=== PATIENT | female | born 1950 | race Caucasian/White ===

== ENCOUNTER → 2022-11-23 15:28 | Outpatient (CLI) | payer MEDICARE, OTHER, SELFPAY | PROVIDERS: Visit Provider Student in an Organized Health Care Education/Training Program | DX: R30.0 Dysuria (principal) | CPT/HCPCS: 87077; 87086; 87186 ==

== ENCOUNTER → 2024-09-28 12:35 | Outpatient (CLI) | payer MEDICARE, SELFPAY ==
[2024-09-28 13:30] LABS: Add Manual Diff / Slide Review NO; Basophils Absolute Auto 0 /uL (0-100); Basophils Percent Auto 0.6 % (0-2); Eosinophils Absolute Auto 100 /uL (0-450); Eosinophils Percent Auto 1.2 % (2-4); Hematocrit 36.7 % (36-46); Hemoglobin 12.2 g/dL (12.0-16.0); Lymphocytes Absolute Auto 1600 /uL (1100-4500); Lymphocytes Percent Auto 29.8 % (25-40); Mean Corpuscular HGB Conc 33.4 % (30-36); Mean Corpuscular Hemoglobin 31.9 PG (26-34); Mean Corpuscular Volume 95.5 fL (80-100); Monocytes Absolute Auto 500 /uL (0-900); Monocytes Percent Auto 9.3 % (3-14); Neutrophils Absolute Auto 3200 /uL (1500-7000); Neutrophils Percent Auto 59.1 % (50-75); Platelet Count 262 X10^3/uL (150-400); Red Blood Cell Count 3.84 X10^6/uL (4.0-5.2); Red Cell Distribution Width 13.9 % (11.6-14.8); White Blood Cell Count 5.4 X10^3/uL (4.5-11.0)
[2024-09-28 13:47] LABS: Alanine Aminotransferase 14 IU/L (<35); Albumin 4.1 g/dL (3.5-5.0); Albumin Globulin Ratio 1.5 (1.0-2.8); Alkaline Phosphatase 73 U/L (38-126); Aspartate Aminotransferase 21 IU/L (14-36); BUN Creatinine Ratio 29.4 (6-22); Bilirubin Total 0.6 mg/dL (0.2-1.3); Blood Urea Nitrogen 25 mg/dL (7-17); C-Reactive Protein Quant < 0.5 mg/dL (<1.0); Calcium 9.6 mg/dL (8.4-10.2); Carbon Dioxide 24 mmol/L (22-32); Chloride 106 mmol/L (98-107); Estimated Glomerular Filt Rate > 60 mL/min (>60); Globulin 2.8 g/dL (1.7-4.1); Glucose 96 mg/dL (80-110); HEMOLYSIS < 15 (0-50); Potassium 4.4 mmol/L (3.4-5.1); Sodium 137 mmol/L (137-145); Total Protein 6.9 g/dL (6.3-8.2)
[2024-09-28 13:50] LABS: Rheumatoid Factor < 8.6 IU/mL (<12.0)
[2024-09-28 14:05] LABS: Free T4, Direct Thyroxine 1.45 ng/dL (0.78-2.19)
[2024-09-28 14:19] LABS: Thyroid Stimulating Hormone 0.076 uIU/mL (0.47-4.68)
[2024-09-28 14:38] LABS: Vitamin B12 449 pg/mL (239-931)
== END ==
PROVIDERS: PCP Family Medicine; Referring Provider Family Medicine; Visit Provider Family Medicine
DX: E03.9 Hypothyroidism, unspecified (principal); R53.83 Other fatigue; F90.9 Attention-deficit hyperactivity disorder, unspecified type; M19.049 Primary osteoarthritis, unspecified hand; M79.89 Other specified soft tissue disorders; C73 Malignant neoplasm of thyroid gland; R53.82 Chronic fatigue, unspecified
CPT/HCPCS: 36415; 80053; 82607; 84439; 84443; 85025; 86140; 86200; 86430

== ENCOUNTER → 2024-12-07 11:22 | Outpatient (CLI) | payer MEDICARE, SELFPAY ==
[2024-12-07 14:04] LABS: Free T3, Triiodothyronine Free 2.66 pg/mL (2.77-5.27); Free T4, Direct Thyroxine 1.65 ng/dL (0.78-2.19)
[2024-12-07 14:18] LABS: Thyroid Stimulating Hormone 0.108 uIU/mL (0.47-4.68)
[2024-12-09 15:40] LABS: Anti Thyroglobulin Antibody <1.0 IU/mL (0.0-0.9)
== END ==
PROVIDERS: PCP Family Medicine; Referring Provider Internal Medicine Endocrinology, Diabetes & Metabolism; Visit Provider Internal Medicine Endocrinology, Diabetes & Metabolism
DX: C73 Malignant neoplasm of thyroid gland (principal)
CPT/HCPCS: 36415; 84439; 84443; 84481; 86800

== ENCOUNTER → 2024-12-08 16:18 | Outpatient (CLI) | payer MEDICARE, SELFPAY ==
--- NOTE | 2024-12-08 16:22 | DI.US.S_ITS ---
PROCEDURE: US THYROID INDICATIONS: annual check after thyroid cancer TECHNIQUE: Real-time scanning was performed of the thyroid gland, with image documentation. COMPARISON: None. FINDINGS: Thyroid: Surgically absent. No residual thyroid tissue is identified. Small lymph node near the left thyroid surgical bed measuring 0.4 cm short axis diameter. There is preserved fatty hilum. The node is circumscribed. IMPRESSION: Post thyroidectomy. No mass or suspicious adenopathy seen. Dictated by: Benedicto Liriano M.D. on 12/09/2024 at 9:10 Approved by: Benedicto Liriano M.D. on 12/09/2024 at 9:43
== END ==
LOC: US 16:21
PROVIDERS: PCP Family Medicine
DX: C73 Malignant neoplasm of thyroid gland (principal)
CPT/HCPCS: 76536

== ENCOUNTER → 2024-12-29 10:20 | Outpatient (CLI) | payer MEDICARE, SELFPAY ==
[2024-12-29 10:58] LABS: Add Manual Diff / Slide Review NO; Basophils Absolute Auto 0 /uL (0-100); Eosinophils Absolute Auto 100 /uL (0-450); Eosinophils Percent Auto 2.1 % (2-4); Hematocrit 36.3 % (36-46); Hemoglobin 12.3 g/dL (12.0-16.0); Lymphocytes Absolute Auto 1500 /uL (1100-4500); Lymphocytes Percent Auto 36.5 % (25-40); Mean Corpuscular Hemoglobin 32.6 PG (26-34); Mean Corpuscular Volume 95.9 fL (80-100); Monocytes Absolute Auto 400 /uL (0-900); Monocytes Percent Auto 8.6 % (3-14); Neutrophils Absolute Auto 2100 /uL (1500-7000); Neutrophils Percent Auto 51.8 % (50-75); Platelet Count 268 X10^3/uL (150-400); Red Blood Cell Count 3.78 X10^6/uL (4.0-5.2); Red Cell Distribution Width 14.3 % (11.6-14.8); White Blood Cell Count 4.2 X10^3/uL (4.5-11.0)
[2024-12-29 11:16] LABS: HEMOLYSIS < 15 (0-50)
[2024-12-29 11:19] LABS: Uric Acid 5.5 mg/dL (2.5-6.2)
[2024-12-29 11:21] LABS: Iron 109 ug/dL (37-170)
[2024-12-29 11:34] LABS: Percent Iron Saturation 35 % (15-50); Total Iron Binding Capacity 313 ug/dL (265-497); Transferrin 291 mg/dL (206-381)
[2024-12-29 11:35] LABS: Vitamin D 25 Hydroxy (D3) 34.2 ng/mL (30.0-100.0)
[2024-12-29 11:55] LABS: Ferritin 26 ng/mL (11-264)
[2024-12-29 12:17] LABS: Vitamin B12 521 pg/mL (239-931)
[2024-12-29 14:20] LABS: Follicle Stimulating Hormone 63.4 mIU/mL
[2024-12-29 14:36] LABS: Estradiol, Total 18.6 pg/mL
== END ==
LOC: LAB 10:21
PROVIDERS: PCP Family Medicine; Referring Provider Family Medicine; Visit Provider Family Medicine
DX: E03.9 Hypothyroidism, unspecified (principal); Z98.890 Other specified postprocedural states; R53.82 Chronic fatigue, unspecified; Z90.89 Acquired absence of other organs
CPT/HCPCS: 36415; 82306; 82607; 82670; 82728; 83001; 83540; 83550; 84144; 84550; 85025

== ENCOUNTER → 2025-05-05 16:04 | Outpatient (CLI) | payer MEDICARE, SELFPAY ==
[2025-05-05 17:57] LABS: Alanine Aminotransferase 18 IU/L (<35); Albumin 4.2 g/dL (3.5-5.0); Albumin Globulin Ratio 1.6 (1.0-2.8); Alkaline Phosphatase 84 U/L (38-126); Aspartate Aminotransferase 25 IU/L (14-36); Bilirubin Total 0.6 mg/dL (0.2-1.3); Blood Urea Nitrogen 22 mg/dL (7-17); Calcium 8.8 mg/dL (8.4-10.2); Carbon Dioxide 23 mmol/L (22-32); Chloride 106 mmol/L (98-107); Estimated Glomerular Filt Rate > 60 mL/min (>60); Globulin 2.7 g/dL (1.7-4.1); Glucose 82 mg/dL (70-99); HEMOLYSIS < 15 (0-50); Potassium 4.4 mmol/L (3.4-5.1); Sodium 138 mmol/L (137-145); Total Protein 6.9 g/dL (6.3-8.2)
[2025-05-05 18:11] LABS: Erythrocyte Sedimentation Rate 12 MM/HR (0-20)
[2025-05-05 18:14] LABS: Progesterone, Total 0.27 ng/mL
[2025-05-05 18:16] LABS: Add Manual Diff / Slide Review NO; Basophils Absolute Auto 0 /uL (0-100); Basophils Percent Auto 0.8 % (0-2); Eosinophils Absolute Auto 100 /uL (0-450); Free T4, Direct Thyroxine 1.66 ng/dL (0.78-2.19); Hematocrit 38.1 % (36-46); Hemoglobin 12.7 g/dL (12.0-16.0); Lymphocytes Absolute Auto 1900 /uL (1100-4500); Lymphocytes Percent Auto 29.1 % (25-40); Mean Corpuscular HGB Conc 33.4 % (30-36); Mean Corpuscular Hemoglobin 32.4 PG (26-34); Mean Corpuscular Volume 96.8 fL (80-100); Monocytes Absolute Auto 500 /uL (0-900); Monocytes Percent Auto 7.8 % (3-14); Neutrophils Absolute Auto 3900 /uL (1500-7000); Neutrophils Percent Auto 61.3 % (50-75); Platelet Count 242 X10^3/uL (150-400); Red Blood Cell Count 3.93 X10^6/uL (4.0-5.2); Red Cell Distribution Width 12.8 % (11.6-14.8); White Blood Cell Count 6.4 X10^3/uL (4.5-11.0)
[2025-05-05 18:30] LABS: Estradiol, Total 60.1 pg/mL; Thyroid Stimulating Hormone 0.023 uIU/mL (0.47-4.68)
[2025-05-05 18:33] LABS: Ferritin 18 ng/mL (11-264)
[2025-05-07 18:36] LABS: Thyroglobulin Antibodies < 1.0 IU/mL (0.0-0.9)
== END ==
PROVIDERS: PCP Family Medicine; Referring Provider Physician Assistant Medical; Visit Provider Physician Assistant Medical
DX: L64.8 Other androgenic alopecia (principal); L65.0 Telogen effluvium
CPT/HCPCS: 36415; 80053; 82670; 82728; 84144; 84402; 84403; 84432; 84439; 84443; 85025; 85651; 86800

== ENCOUNTER → 2025-05-17 09:06 | Outpatient (CLI) | payer MEDICARE, SELFPAY ==
--- NOTE | 2025-05-17 09:09 | DI.MG.S_ITS ---
MM diagnostic mammo implant BI: 05/17/2025. BI-RADS: 2 CLINICAL: 75-year old female for bilateral diagnostic mammogram. Tyrer-Cuzick lifetime risk of 5.5%. No personal or first-degree family history of breast cancer. The patient reports pain (3 months) in both breasts. The patient has bilateral implants. The patient had a prior left breast biopsy. The patient is status-post reduction mammoplasty. PRIOR EXAMS: No prior examinations available. 08/11/2023,07/04/2022,01/22/2019. MAMMOGRAPHY TECHNIQUE: 2D and 3D (tomosynthesis) digital mammographic views obtained, with additional images as needed for full coverage. Current study was also evaluated with a Computer Aided Detection (CAD) system. DENSITY C. The breasts are heterogeneously dense, which may obscure small masses. MAMMOGRAPHY FINDINGS Bilateral: No mammographic abnormalities identified to explain patient's diffuse bilateral breast pain. Bilateral breast implants appear intact. There are no suspicious masses, calcifications, or other findings in the breast. IMPRESSION: * No evidence of malignancy with benign findings. RECOMMENDATIONS Bilateral * Annual screening mammography. COMMENTS: Clinical follow-up is recommended, and further management of palpable abnormalities or other focal signs or symptoms should be based on the results of clinical evaluation. If palpable abnormality or other concerning symptom persists or progresses, further clinical evaluation should be considered. Findings and recommendations were conveyed to the patient during today's evaluation. OVERALL ASSESSMENT CATEGORY BI-RADS-2: Benign. The [employer] recommends annual screening mammography beginning at age 40 for women with average risk of breast cancer. ELECTRONICALLY SIGNED: Eddie Mathew M.D. on 05/17/2025 at 10:09:34 AM PT Interpreting Station ID: [id number]
== END ==
PROVIDERS: PCP Family Medicine; Referring Provider Family Medicine; Visit Provider Family Medicine
DX: N64.4 Mastodynia (principal); Z98.82 Breast implant status; R92.333 Mammographic heterogeneous density, bilateral breasts
CPT/HCPCS: 77066; G0279

== ENCOUNTER → 2025-11-01 16:19 | Outpatient (CLI) | payer MEDICARE, SELFPAY | PROVIDERS: PCP Family Medicine; Visit Provider Physician Assistant Medical | DX: R39.9 Unspecified symptoms and signs involving the genitourinary system (principal) | CPT/HCPCS: 87086 ==

== ENCOUNTER → 2025-11-17 13:03 | Outpatient (CLI) | payer MEDICARE, SELFPAY ==
[2025-11-17 13:43] LABS: Add Manual Diff / Slide Review NO; Hematocrit 37.9 % (36-46); Hemoglobin 12.8 g/dL (12.0-16.0); Lymphocytes Absolute Auto 1700 /uL (1100-4500); Mean Corpuscular HGB Conc 33.7 % (30-36); Mean Corpuscular Hemoglobin 32.5 PG (26-34); Mean Corpuscular Volume 96.2 fL (80-100); Platelet Count 261 X10^3/uL (150-400)
[2025-11-17 14:09] LABS: Alanine Aminotransferase 14 IU/L (<35); Albumin 4.6 g/dL (3.5-5.0); Albumin Globulin Ratio 1.6 (1.0-2.8); Alkaline Phosphatase 83 U/L (38-126); Blood Urea Nitrogen 21 mg/dL (7-17); Calcium 9.2 mg/dL (8.4-10.2); Carbon Dioxide 25 mmol/L (22-32); Chloride 106 mmol/L (98-107); Estimated Glomerular Filt Rate > 60 mL/min (>60); Globulin 2.8 g/dL (1.7-4.1); Glucose 96 mg/dL (70-99); HEMOLYSIS < 15 (0-50); Potassium 4.7 mmol/L (3.4-5.1); Sodium 138 mmol/L (137-145); Total Protein 7.4 g/dL (6.3-8.2)
[2025-11-17 14:27] LABS: Free T3, Triiodothyronine Free 3.58 pg/mL (2.77-5.27); Free T4, Direct Thyroxine 1.68 ng/dL (0.78-2.19)
[2025-11-17 14:40] LABS: Thyroid Stimulating Hormone 0.131 uIU/mL (0.47-4.68)
[2025-11-17 15:00] LABS: Vitamin B12 613 pg/mL (239-931)
[2025-11-17 16:00] LABS: Vitamin D 25 Hydroxy (D3) 34.1 ng/mL (30.0-100.0)
== END ==
PROVIDERS: PCP Family Medicine; Referring Provider Family Medicine; Visit Provider Family Medicine
DX: N30.00 Acute cystitis without hematuria (principal); R20.0 Anesthesia of skin
CPT/HCPCS: 36415; 80053; 82306; 82607; 84439; 84443; 84481; 85025